=== PATIENT | male | born 1960 | race Caucasian/White ===

== ENCOUNTER → 2022-07-25 | Outpatient (REF) | payer BC ==
[~2022-07-25] MED LIST: ACCUKIT10 XX; ACCUKIT13 XX; ACURKIT XX; ATEN100T PO; DRIS50003 PO; HYDR-2541 PO; INSUDET SC; INSULADS SC; LANTINJ4 SC; LASI80TA3 PO; LEVO75TA4 PO; MELO7.5T7 PO; NOVOINJ13 SC; NOVOINJ3 SC; ONETTES13 VI; POTA-136 PO; PRAV40TA2 PO; [UNRECOGNIZED DRUG - CODE] XX; [UNRECOGNIZED DRUG - CODE] XX; [UNRECOGNIZED DRUG - OTHER] XX; [UNRECOGNIZED DRUG - SUPPLY] EX
== END ==
LOC: M LAB REF 17:40
PROVIDERS: ATTEND Internal Medicine Nephrology
DX: E83.52 Hypercalcemia (principal)

== ENCOUNTER → 2023-04-05 | Outpatient (CLI) | payer BC ==
[2023-04-05 11:48] LABS: HEMATOCRIT 51.5 % (42.0-52.0); HEMOGLOBIN 16.2 g/dl (13.5-17.5); MEAN CORPUSCULAR HEMOGLOBIN 27.2 pg (27.0-33.0); MEAN CORPUSCULAR HGB CONC 31.5 g/dl (32.0-36.5); MEAN CORPUSCULAR VOLUME 86.4 fl (80.0-96.0); PLATELET COUNT, AUTOMATED 236 10^3/uL (150-450); RED BLOOD COUNT 5.96 10^6/uL (4.30-6.10); WHITE BLOOD COUNT 8.2 10^3/uL (4.0-10.0)
[2023-04-05 12:14] LABS: URIC ACID 6.3 MG/DL (3.7-9.2)
[2023-04-05 12:16] LABS: ALBUMIN 3.9 G/DL (3.2-5.2); BILIRUBIN,TOTAL 0.4 MG/DL (0.3-1.2); CREATININE FOR GFR 1.41 MG/DL (0.70-1.30); GLOMERULAR FILTRATION RATE 53.9 (>49); POTASSIUM SERUM 4.3 MMOL/L (3.5-5.1); TOTAL PROTEIN 7.2 G/DL (5.7-8.2)
[2023-04-05 12:18] LABS: THYROID STIMULATING HORMONE 4.393 uIU/ML (0.55-4.78)
[2023-04-05 12:23] LABS: HEMOGLOBIN A1c 7.1 % (4.0-6.0)
== END ==
LOC: M LAB 11:09
PROVIDERS: ATTEND Registered Nurse
DX: I10 Essential (primary) hypertension (principal); E11.65 Type 2 diabetes mellitus with hyperglycemia; E03.9 Hypothyroidism, unspecified; M10.00 Idiopathic gout, unspecified site

== ENCOUNTER → 2024-01-26 | Outpatient (REF) | payer BC ==
[2024-01-26 18:09] LABS: HEMOGLOBIN A1c 7.4 % (4.0-6.0)
[2024-01-26 18:17] LABS: ALBUMIN 3.7 G/DL (3.2-5.2); ALKALINE PHOSPHATASE 67 U/L (40-129); ALT/SGPT 42 U/L (7.0-40); AST/SGOT 27 U/L (<34); BILIRUBIN,TOTAL 0.4 MG/DL (0.3-1.2); BLOOD UREA NITROGEN 18 MG/DL (9-23); CALCIUM LEVEL 10.5 MG/DL (8.3-10.6); CARBON DIOXIDE LEVEL 28 MMOL/L (20-31); CHLORIDE LEVEL 103 MMOL/L (98-107); CREATININE FOR GFR 1.22 MG/DL (0.70-1.30); GLOMERULAR FILTRATION RATE > 60.0 (>49); GLUCOSE, FASTING 112 MG/DL (74-106); POTASSIUM SERUM 4.7 MMOL/L (3.5-5.1); SODIUM LEVEL 138 MMOL/L (136-145); TOTAL PROTEIN 7.4 G/DL (5.7-8.2)
[2024-01-26 18:19] LABS: FREE T4 1.67 NG/DL (0.89-1.76)
[2024-01-26 18:49] LABS: THYROID STIMULATING HORMONE 6.441 uIU/ML (0.55-4.78)
== END ==
LOC: M LAB REF 17:28
PROVIDERS: ATTEND Registered Nurse
DX: E11.65 Type 2 diabetes mellitus with hyperglycemia (principal); E03.9 Hypothyroidism, unspecified